=== PATIENT | female | born 1965 | race Caucasian/White ===

== ENCOUNTER 2020-04-12 06:41 | Outpatient (CLI) | payer BC ==
[2020-04-13 02:51] LABS: SARS-CoV-2 by NAA DETECTED (NotDetected)
[2020-04-13 02:55] LABS: SARS-CoV-2 MS2 Positive; SARS-CoV-2 N Gene Positive; SARS-CoV-2 S Gene Negative; SARS-CoV-2 orf1ab Positive
== END 2020-04-12 06:42 | disposition home or self-care (01) ==
LOC: LABBT 06:41
PROVIDERS: ATTEND Surgery
DX: U07.1 COVID-19 (principal); Z01.812 Encounter for preprocedural laboratory examination; K64.9 Unspecified hemorrhoids
CPT/HCPCS: 87635; U0003

== ENCOUNTER 2020-06-22 06:08 | Day surgery (SDC) | payer BC ==
[2020-06-22] MEDS ORDERED: Lidocaine 2% Jelly 5 ML TUBE ONE (06:33)
[2020-06-22] MEDS ORDERED: cefOXitin Sodium/Dextrose 2 GM/50 ML BAG ONE (06:39)
[2020-06-22] MEDS ORDERED: Fentanyl 100 MCG/2 ML VIAL ONE (06:59)
[2020-06-22] MEDS ORDERED: Midazolam HCl 2 mg/2 ml Vial ONE (07:07)
[2020-06-22] MEDS ORDERED: Scopolamine 1.5 mg/72 hour Patch ONE (07:07)
== END 2020-06-22 07:51 | disposition home or self-care (01) ==
LOC: SDC 06:08
PROVIDERS: ATTEND Surgery
DX: K64.9 Unspecified hemorrhoids (principal); Z79.899 Other long term (current) drug therapy; Z53.8 Procedure and treatment not carried out for other reasons
CPT/HCPCS: J0694; J2250; J3010

== ENCOUNTER 2020-06-23 09:04 | Day surgery (SDC) | payer BC ==
[2020-06-23] MEDS ORDERED: cefOXitin Sodium/Dextrose 2 GM/50 ML BAG ONE (09:51)
[2020-06-23] MEDS ORDERED: Acetaminophen 500 MG TAB ONE (10:21)
[2020-06-23] MEDS ORDERED: Midazolam HCl 2 mg/2 ml Vial ONE (10:42)
[2020-06-23] MEDS ORDERED: Fentanyl 250 MCG/5 ML VIAL ONE (11:13)
[2020-06-23] MEDS ORDERED: Bupivacaine 0.25% HCL 30 ML VIAL ONE (11:52)
[2020-06-23] MEDS ORDERED: XYLOCAINE 2%-EPI 1:100,000 20 ML VIAL ONE (11:52)
[2020-06-23] MEDS ORDERED: Lidocaine 2% Jelly 5 ML TUBE ONE (12:07)
[2020-06-23] MEDS ORDERED: Sodium Chloride 0.9% 10 ML ONE (12:26)
[2020-06-23] MEDS ORDERED: Fentanyl 100 MCG/2 ML VIAL ONE (12:43)
[2020-06-23] MEDS ORDERED: Glycopyrrolate 0.2 MG/ML 5 ML SYRINGE ONE (13:11)
[2020-06-23] MEDS ORDERED: PHENYLEPHRINE-NS 100 MCG/ML 10 ML SYRINGE ONE (13:11)
[2020-06-23] MEDS ORDERED: Rocuronium Bromide 10 MG/ML (10ML VIAL) ONE (13:11)
[2020-06-23] MEDS ORDERED: Ketorolac Tromethamine 30 MG/ML VIAL ONE (13:11)
[2020-06-23] MEDS ORDERED: Dexamethasone 20 MG/5 ML VIAL ONE (13:11)
[2020-06-23] MEDS ORDERED: Lidocaine 1% PF 5 ML VIAL ONE (13:11)
[2020-06-23] MEDS ORDERED: Ondansetron PF 4 MG/2 ML Vial ONE (13:11)
[2020-06-23] MEDS ORDERED: PROPOFOL 200 MG/20 ML VIAL ONE (13:11)
== END 2020-06-23 13:44 | disposition home or self-care (01) ==
LOC: SDC 09:04
PROVIDERS: ATTEND Surgery
PROC: 06BY3ZC Excision of Hemorrhoidal Plexus, Percutaneous Approach (ICD-10-PCS; principal; 2020-06-23)
DX: K64.8 Other hemorrhoids (principal); K64.4 Residual hemorrhoidal skin tags
CPT/HCPCS: 88304; J0694; J1100; J1885; J2250; J2405; J2704; J3010; S0020